=== PATIENT | female | born 1970 | race African-American/Black ===

== ENCOUNTER 2022-02-05 12:19 | Emergency (ER) | payer SELFPAY ==
[2022-02-05 12:46] VITALS: BP 160/83
[2022-02-05 14:04] LABS: Basophils % (Auto) 0.3 % (0.0-1.8); Eosinophils % (Auto) 0.2 % (0.0-4.3); Hematocrit 36.2 % (30.3-42.9); Hemoglobin 11.7 gm/dl (10.1-14.3); Lymphocytes # (Auto) 1.7 K/mm3 (1.2-5.4); Lymphocytes % (Auto) 10.7 % (13.4-35.0); Mean Corpuscular HGB Conc 32 % (30-34); Mean Corpuscular Volume 89 fl (79-97); Monocytes # (Auto) 0.7 K/mm3 (0.0-0.8); Monocytes % (Auto) 4.3 % (0.0-7.3); Platelet Count 363 K/mm3 (140-440); Red Blood Count 4.08 M/mm3 (3.65-5.03); Red Cell Distribution Width 14.3 % (13.2-15.2)
[2022-02-05 14:18] LABS: Blood Urea Nitrogen 9 mg/dL (7-17); Calcium 9.5 mg/dL (8.4-10.2); Hemolysis Index 3
[2022-02-05 14:28] LABS: BUN/Creatinine Ratio 13
[2022-02-05 15:53] LABS: Color,Urine Red (Yellow)
[2022-02-05 15:57] LABS: Bilirubin,Urine Negative (Negative); Blood,Urine 3+ (Negative)
[2022-02-05 16:30] LABS: RBC,Urine > 182.0 /HPF (0.0-6.0); WBC,Urine > 182.0 /HPF (0.0-6.0)
== END 2022-02-05 14:00 | disposition left against medical advice (07) ==
LOC: ED 12:19
DX: R31.9 Hematuria, unspecified (principal); Z53.21 Procedure and treatment not carried out due to patient leaving prior to being seen by health care provider
CPT/HCPCS: 36415; 80048; 81001; 82150; 83690; 85025